=== PATIENT | female | born 1985 | race Caucasian/White ===

== ENCOUNTER 2023-06-14 14:14 | Outpatient (CLI) | payer OTHER, SELFPAY ==
--- NOTE | 2023-07-02 14:42 | WPDSLEEPSTUD ---
Sleep Study Date of Study: 06/14/23 Ordering Provider: Rocco Arcos APRN Interpreting Physician: Bonny Becker MD Sleep Study Type: Split Polysomnogram Height: 1.68 m Weight: 142.882 kg Body Mass Index: 50.8 Neck Circumference (inches): 18 Votaw: 20 Reason for Sleep Study Hypersomnolence * 10/22/2021, home sleep test using Snap diagnostics device showed an apnea-hypopnea index of 59.6, jayesh saturation 79%, 41 minute spent below 88% and a recommended CPAP pressure of 13 cm or auto PAP. BMI at the time was 49.3. Sleep History Summer Sabillon is a 38-year-old woman with excessive daytime sleepiness and constant daytime fatigue. She falls asleep at work. She is a customer service coordinator. She is sleepy while driving. Before having kids she would take naps daily and she snored. There is a family history of sleep issues, her father was recently placed on CPAP. She rarely awakens from sleep short of breath. She frequently wakes at night with heartburn, belching or coughing.??She constantly snores loudly enough that others complain. She occasionally has trouble sleeping when she has a cold. She occasionally wakes up gasping for breath during the night. She occasionally has breathing problems at night. She rarely sweats excessively at night. She rarely notices her heart pounding or beating irregularly during the night. She constantly falls asleep during the day. She occasionally falls asleep involuntarily, and even occasionally falls asleep while driving. She never experiences loss of muscle tone with strong emotion. She constantly feels paralyzed on waking or falling asleep. She frequently experiences vivid dreams upon waking or falling asleep. She never feels afraid of going to sleep. She never has nightmares. She occasionally recalls her dreams. She occasionally has thoughts racing through her mind. She never feels sad or depressed. She frequently feels anxiety. She never notices parts of her body jerk. She never kicks during the night. She never feels crawling or aching feelings in her legs. She rarely feels leg pain at night. She never has morning jaw pain, and occasionally grinds her teeth at night. She frequently feels bothered by pain during the day, is rarely awakened by pain during the night. She occasionally wakes up feeling stiff in the morning, occasionally wakes feeling sore or achy in the morning. She occasionally awakens with pain in her neck, spine, or joints. Normal bedtime is 10:00 p.m., falling asleep within an hour, waking 3 or more times at night to go to the bathroom, have a snack and look at her cell phone. She wakes at 6:00 a.m., reports getting 7-8 hours of sleep per night. On weekends, bedtime is 11:00 p.m. and her wake time is 9:00 a.m. or later. She does not generally take naps in the afternoon or evening. A short nap lasting 10-15 minutes may be refreshing. She is drowsy for 3 hours or longer after waking. She feels better in the evening compared to other times of day. Habits:??Tobacco: Never smoker Caffeine: one 12 oz can of soda per day. Alcohol: None Recreational substances: none PMFSH Past Medical History Medical History Annual physical exam Anxiety Body mass index [BMI] 38.0-38.9, adult (03/17/17) Body mass index [BMI] 40.0-44.9, adult (08/04/16) Chondromalacia patellae, right knee LINO (obstructive sleep apnea) Patellofemoral pain syndrome of right knee PCOS (polycystic ovarian syndrome) Pes anserine bursitis Pre-diabetes Screening for cholesterol level Screening for thyroid disorder Skin neoplasm URI (upper respiratory infection) Vitamin B12 deficiency Vitamin D deficiency Weight loss counseling, encounter for Surgical History Surgical History History of section 03/26/10, 06/28/2014 Family History Family History (Reviewed 07/02/23 @ 14:49 by Bonny Curiel
[2023-07-02 15:09] VITALS: BMI 50.8
== END 2023-06-15 06:53 | disposition home or self-care (01) ==
LOC: ANHCSM 14:14
PROVIDERS: PCP Physician Assistant Medical; Visit Provider Nurse Practitioner Family
DX: G47.33 Obstructive sleep apnea (adult) (pediatric) (principal); F39 Unspecified mood [affective] disorder; Z68.43 Body mass index [BMI] 50.0-59.9, adult
CPT/HCPCS: 95811

== ENCOUNTER 2023-10-25 16:09 | Outpatient (CLI) | payer OTHER, SELFPAY ==
--- NOTE | ~2023-10-25 | CT_ITS ---
EXAMINATION: CT diagnostic chest wo con DATE: 10/25/2023 16:39 INDICATION: Dyspnea. History of pneumonia. TECHNIQUE: Computed tomography (CT) of the chest was performed without intravenous contrast. The dose -length product was 869.41 mGy-cm. Automated exposure control and iterative reconstruction technique were employed. COMPARISON: Chest dated 10/16/2023 FINDINGS: Mild mediastinal lymphadenopathy, likely reactive. Heart size normal. No significant pleura l or pericardial effusion. No endobronchial lesions. There are right upper lobe groundglass and retic ulonodular densities, consistent with pneumonia. No acute osseous abnormality. Mild thoracic spondylo sis. IMPRESSION: 1. Groundglass and reticulonodular densities of the right upper lobe, consistent with pneumonia. 2: Mild mediastinal lymphadenopathy, likely reactive. Reviewed, dictated and finalized at location B. IMPRESSION: 1. Groundglass and reticulonodular densities of the right upper lobe, consisten t with pneumonia. 2: Mild mediastinal lymphadenopathy, likely reactive.
== END 2023-10-25 16:10 | disposition home or self-care (01) ==
LOC: ANHIMG 16:10
PROVIDERS: PCP Physician Assistant Medical; Visit Provider Nurse Practitioner Family
DX: J18.9 Pneumonia, unspecified organism (principal); R93.89 Abnormal findings on diagnostic imaging of other specified body structures; R91.8 Other nonspecific abnormal finding of lung field; R59.0 Localized enlarged lymph nodes
CPT/HCPCS: 71250

== ENCOUNTER 2024-07-23 12:58 | Outpatient (CLI) | payer OTHER, SELFPAY ==
--- OUTSIDE RECORDS SUMMARY | 2024-07-23 14:34 | XMS_ITS | Referral Summary ---
Author Organization [address] Address [address] [place] [address] Care Team Providers Care Meringuer Name Role Phone Carolee Sherwood NP Primary Care Provider Allergies Active Allergy Reactions Criticality Noted Date Comments Penicillanic Sulfone Bl Beta -Lactamase Inhibitors Rash Medium 11/29/2022 Sulfa (Sulfonamide Antibiotics) Rash Medium 11/02 Tramadol Rash Medium 11/29/2022 Medications buPROPion XL (WELLBUTRIN XL) 150 mg 24 hr tablet Take 1 tablet (150 mg total) by mouth daily 09/13/2022 Active PARoxetine (PAXIL) 20 mg tablet Take 1 tablet (20 mg total) by mouth daily 11/14/2022 Active semaglutide (WEGOVY) 0.5 mg/0.5 mL auto-injector Inject 0.5 mL (0.5 mg total) under the skin every 7 days Active meloxicam (MOBIC) 15 mg tabletIndication s:Superior glenoid labrum lesion of shoulder, initial encounter Take 1 tablet (15 mg total) by mouth daily 30 tablet 1 11/29/2022 Active Active Problems Problem Noted Date Diagnosed Date Traumatic incomplete tear of right rotator cuff 01/24/2023 Superior glenoid labrum lesi on of shoulder, initial encounter 01/24/2023 Right shoulder pain 01/24/2023 Social History Tobacco Use Types Packs/Day Years Used Date Smoking Tobacco: Never Tobacco Cessation:Counseling Given: Not Answered Personal Safety Answer Date Recorded Getting School Help Needed Not on file 04/12 Comments Unknown Sex and Gender Information Value Date Recorded Sex Assigned at Not on file Legal Sex Female 5:38 AM CDT Gender Identity Not on file Sexual Orientation Not on file 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
--- OUTSIDE RECORDS SUMMARY | 2024-07-23 14:34 | XMS_ITS | Clinical Summary ---
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 Not on file Not on file Obstetrics History Last Filed Vital Signs Vital Sign Reading Time Taken Comments Blood Pressure - - Pulse - - Temperature - - Respiratory Rate - - Oxygen Saturation - - Inhaled Oxygen Concentration - - Weight 145.2 kg (320 lb) 11/29/2022 12:54 PM CDT Height 167.6 cm (5' 6 ) 11/29/2022 12:54 PM CDT Body Mass Index 51.65 11/29/2022 12:54 PM CDT Plan of Treatment Health Maintenance Due Date Last Done Comments Cervical Cancer Screening 1986 Depression Screening 1986 Hepatitis C Screening 1986 Varicella Vaccines (1 of 2 - 13+ 2-dose series) 1999 Regular Well Visit/Exam 18-64 02/11/2004 Influenza Vaccine (Season Ended) 2024 01/20/2015, 01/20/2015 DTaP/Tdap/Td Vaccine (8 - Td or Tdap) 04/14/2025 04/14/2015, 04/13/2015, 11/06/2002, Additional history exists Hepatitis B Screening Completed 11/01/1996 , 11/01/1996, 06/04/1996, Additional history exists HPV Vaccines Aged Out No longer eligi ble based on patient's age to complete this topic Pneumococcal vaccine <65 Aged Out No longer eligible based on patient's age to complete this topic Insurance CIGNA CIGNA Care Teams Poultry Breeder Relationship Specialty Start Date End Date Carolee Sherwood NP [address] [place] [id number] PCP - General Nurse Practitioner 11/11/22
--- NOTE | 2024-07-23 15:00 | NEURO_ITS ---
Impression: # Complains of numbness of hands. Non-diabetic. ? # Bilateral Carpal Tunnel Syndrome, left more than right. ? # No ulnar neuropathy. ? # Needle/EMG exam mildly abnormal. Nerve Conduction Studies Anti Sensory Summary Table ?Stim Site NR Peak (ms) P-T Amp (?V) Site1 Site2 Delta-P (ms) Dist (cm) Joaquin (m/s) Left Median Anti Sensory (2-3nd Digit) Wrist ? 5.7 16.9 Wrist 2-3nd Digit 5.7 14.0 25 Wrist ? 6.2 12.5 Wrist 2-3nd Digit 5.7 14.0 25 Right Median Anti Sensory (2-3nd Digit) Wrist ? 4.9 28.9 Wrist 2-3nd Digit 4.9 14.0 29 Wrist ? 4.9 25.0 Wrist 2-3nd Digit 4.9 14.0 29 Left Radial Anti Sensory (Base 1st Digit) Wrist ? 1.9 21.7 Wrist Base 1st Digit 1.9 0.0 Right Radial Anti Sensory (Base 1st Digit) Wrist ? 2.0 35.7 Wrist Base 1st Digit 2.0 0.0 Left Ulnar Anti Sensory (5th Digit) Wrist ? 2.5 50.9 Wrist 5th Digit 2.5 14.0 56 Right Ulnar Anti Sensory (5th Digit) Wrist ? 2.4 44.8 Wrist 5th Digit 2.4 14.0 58 Motor Summary Table ?Stim Site NR Onset (ms) O-P Amp (mV) Site1 Site2 Delta-0 (ms) Dist (cm) Joaquin (m/s) Left Median Motor (Abd Poll Brev) Wrist ? 5.9 6.8 Elbow Wrist 4.1 31.0 76 Elbow ? 10.0 8.3 Right Median Motor (Abd Poll Brev) Wrist ? 4.5 4.2 Elbow Wrist 5.1 30.0 59 Elbow ? 9.6 3.6 Left Ulnar Motor (Abd Dig Minimi) Wrist ? 2.6 10.1 A Elbow Wrist 5.4 32.0 59 A Elbow ? 8.0 7.9 B Elbow Wrist 3.9 23.0 59 B Elbow ? 6.5 6.8 Right Ulnar Motor (Abd Dig Minimi) Wrist ? 2.5 7.4 A Elbow Wrist 5.5 33.0 60 A Elbow ? 8.0 5.3 B Elbow Wrist 4.4 26.0 59 B Elbow ? 6.9 3.9 F Wave Studies ?NR F-Lat (ms) L-R F-Lat (ms) Left Median (Mrkrs) (Abd Poll Brev) ? 29.74 0.00 Right Median (Mrkrs) (Abd Poll Brev) ? 29.74 0.00 Left Ulnar (Mrkrs) (Abd Dig Min) ? 27.89 0.01 Right Ulnar (Mrkrs) (Abd Dig Min) ? 27.90 0.01 EMG ?Side Muscle Nerve Root Ins Act Fibs Amp Dur Recrt Comment Right 1stDorInt Ulnar C8-T1 Nml Nml Nml Nml Nml Right Ext Indicis Radial (Post Int) C7-8 Nml Nml Nml Nml Nml Right Ext Digitorum Radial (Post Int) C7-8 Nml Nml Nml Nml Nml Right BrachioRad Radial C5-6 Nml Nml Nml Nml Nml Right PronatorTeres Median C6-7 Nml Nml Nml Nml Nml Right Abd Poll Brev Median C8-T1 Nml Nml Nml >12ms +1 Right ABD Dig Min Ulnar C8-T1 Nml Nml Nml Nml Nml Right FlexPolLong Median (Ant Int) C7-8 Nml Nml Nml Nml Nml Right Abd Poll Long Radial (Post Int) C7-8 Nml Nml Nml Nml Nml Left 1stDorInt Ulnar C8-T1 Nml Nml Nml Nml Nml Left Ext Indicis Radial (Post Int) C7-8 Nml Nml Nml Nml Nml Left Ext Digitorum Radial (Post Int) C7-8 Nml Nml Nml Nml Nml Left BrachioRad Radial C5-6 Nml Nml Nml Nml Nml Left PronatorTeres Median C6-7 Nml Nml Nml Nml Nml Left Abd Poll Brev Median C8-T1 Nml Nml Nml >12ms +1 Left ABD Dig Min Ulnar C8-T1 Nml Nml Nml Nml Nml Left FlexPolLong Median (Ant Int) C7-8 Nml Nml Nml Nml Nml Left Abd Poll Long Radial (Post Int) C7-8 Nml Nml Nml Nml Nml MTDD
== END 2024-07-23 12:59 | disposition home or self-care (01) ==
PROVIDERS: PCP Physician Assistant Medical; Visit Provider Nurse Practitioner Family
DX: G56.03 Carpal tunnel syndrome, bilateral upper limbs (principal)
CPT/HCPCS: 95886; 95911

== ENCOUNTER 2024-09-01 08:13 | Emergency (ER) | payer OTHER, SELFPAY ==
--- NOTE | 2024-09-01 08:14 | ED.URI ---
HPI - URI/Sore Throat General Chief Complaint: Upper Respiratory Infection Stated Complaint: sore throat patient presents to Express Care with complaints nasal congestion, nasal drainage, cough sore throat about 3 days ago. Patient reports having night sweats and chills last night and yesterday daughter Tested positive for strep throat. Patient has been taking antihistamines [id number] without relief of symptoms. Denies known fever, shortness of breath, difficulty swallowing, sinus pain, dizziness, nausea, vomiting, diarrhea. Related Data Home Medications ?Medication ?Instructions ?Recorded ?Confirmed ?Last Taken ?Type alprazolam 0.25 mg tablet (Xanax) 0.25 mg PO BID 12/03/21 04/22/24 Unknown History Blood Builder BYMOUTH 1XD 01/18/24 04/22/24 Unknown History cyanocobalamin (vitamin B-12) 2,000 mcg sublingual DAILY 01/18/24 04/22/24 Unknown History 1,000 mcg sublingual tablet Allergies Allergy/AdvReac Type Severity Reaction Status Date / Time ceftriaxone (From Rocephin) AdvReac Severe Anaphylactic Verified 09/01/24 08:15 Shock Sulfa (Sulfonamide AdvReac Severe Rash Verified 09/01/24 08:15 Antibiotics) amoxicillin (From Augmentin) AdvReac Intermediate Rash Verified 09/01/24 08:15 cephalexin (From Keflex) AdvReac Intermediate Rash Verified 09/01/24 08:15 clavulanic acid (From AdvReac Intermediate Rash Verified 09/01/24 08:15 Augmentin) prednisone AdvReac Intermediate Nausea and Verified 09/01/24 08:15 Vomiting tramadol AdvReac Intermediate Rash Verified 09/01/24 08:15 famotidine (From Pepcid) AdvReac Diarrhea Verified 09/01/24 08:15 vilazodone (From Viibryd) AdvReac Nausea, Verified 09/01/24 08:15 insomnia pristiq AdvReac Severe Anxiety Uncoded 09/01/24 08:15 septra AdvReac Intermediate Rash Uncoded 09/01/24 08:15 Review of Systems Constitutional: Constitutional: Reports as per HPI, Reports chills, Reports fatigue, Denies fever(s) and Denies weakness Eyes: Eyes: Reports no additional eye complaints ENT: Reports as per HPI, Reports nasal congestion and Reports sore throat Cardiovascular: Cardiovascular: Reports no additional cardiovascular complaints Respiratory: Respiratory: Reports as per HPI, Denies chest congestion, Reports cough, Denies dyspnea and Denies wheezing Gastrointestinal: Gastrointestinal: Reports no additional gastrointestinal complaints Genitourinary: Genitourinary: Reports no additional female genitourinary complaints Musculoskeletal: Musculoskeletal: Reports no additional musculoskeletal complaints Integumentary/Breasts: Skin/Breast: Reports system reviewed and no additional complaints, except as docu Neurologic: Reports as per HPI and Reports headache(s) Psychiatric: Psychiatric: Reports no additional psychiatric complaints Endocrine: Endocrine: Reports no additional endocrine complaints Hematologic/Lymphatic: Hematologic/Lymphatic: Reports no additional hematologic/lymphatic complaints Allergic/Immunologic: Allergic/Immunologic: Reports as per HPI ( Seasonal allergies) [facility] Past Medical History Medical History Anxiety PCOS (polycystic ovarian syndrome) Vitamin B12 deficiency Vitamin D deficiency Pre-diabetes Skin neoplasm Pes anserine bursitis Patellofemoral pain syndrome of right knee Chondromalacia patellae, right knee LINO (obstructive sleep apnea) Surgical History Surgical History History of section 03/26/10, 06/28/2014 Family History Family History Other Family history of cardiovascular disease Family history of malignant neoplasm Social History Social History Smoking status: Never smoker Second hand tobacco smoke exposure: No Alcohol intake: current Substance use: never Substance use type: does not use Lack of Transportation: No Lack of Food: Never True Current Housing: I Have Housing Concerned About Future Housing: No Difficulty Paying Gas/Electric Bills: No Difficulty Paying for Meds: No Currently Unemployed: No Education: Don't Know Difficulty w/ Childcare or Family Care: No Living arrangements: with family Occupation/Education: occupation Gender identity (if verbalized by the patient): Female Exam Const: General: healthy appearing and no acute distress; No diaphoretic or ill appearing Nutritional Appearance: well nourished Orientation/consciousness: patient oriented x3 HENMT: Head: normal to inspection Ears: external ears normal and TM's normal bilaterally Face/Nose/Sinus: Normal external nose present, Normal nares present and no nasal discharge noted Face and sinus: normal facial exam and sinuses nontender Mouth: Yes Normal oral and palatal mucosa present, Yes lip normal and Yes moist mucous membranes Throat: posterior oropharynx abnormal ( moderate and erythema noted no exudate) Neck: Neck: lymphadenopathy (bilateral anterior cervical ) Resp: Effort & Inspection: normal respiratory effort Cardio: Rate: regular rate Rhythm: regular rhythm Heart sounds: no murmurs Skin: General skin exam: normal color Rashes: no rashes Wounds: no wounds Neuro: General: patient oriented x3 Speech: normal speech Gait exam (Neuro): Normal gait present Psych: Mental Status: mental status grossly normal Affect: normal affect Attitude: cooperative Course Course Level of Care: Express Care Visit MDM - URI/Sore Throat MDM Narrative Medical decision making narrative: Strep in clinic negative today. Daughter. Positive yesterday for strep. Discharge instructions reviewed with patient, as well as provided in writing per nursing staff. The instructions also include specific and strict return/GO TO THE ER as well as f/u information. All questions have been answered, and the patient deny any further questions with discharge and discharge plan. Differential Diagnosis Differential diagnosis: Likely upper respiratory infection, otitis media, sinusitis, bronchitis, influenza, pharyngitis and other (strep) Medical Records Attestation: I reviewed the patient's medical records. Lab Data Attestation: I reviewed the patient's lab results. Discharge Plan Discharge Clinical Impression: Acute bacterial tonsillitis Patient Disposition: Home Condition: Stable Instructions: Antibiotic Form, Pharyngitis (ED), Strep Throat (ED) Additional Instructions: After 24 hours on antibiotics throw tooth brush away and start using a new one. Do not share drinks. Take Motrin alternating with Tylenol for pain and fever alternating every 4 hours. Increase fluids, avoid caffeine. Follow up with Primary provider if not getting better this week Patient Language: Stateless Prescriptions: New azithromycin 250 mg tablet See Rx Instructions PO .COMPLEX Qty: 6 0RF Rx Instructions: For 250 mg dose pack: take 500 mg today (day 1), then 250 mg for 4 days (days 2-5) No Action albuterol sulfate 90 mcg/actuation HFA aerosol inhaler 2 inh inhalation Q4H PRN (Reason: shortness of breath or wheezing) Qty: 8.5 0RF alprazolam [Xanax] 0.25 mg tablet 0.25 mg PO BID cholecalciferol (vitamin D3) 125 mcg (5,000 unit) capsule 125 mcg PO DAILY Qty: 30 0RF Rx Instructions: OTC ergocalciferol (vitamin D2) [Vitamin D2] 1,250 mcg (50,000 unit) capsule 1,250 mcg PO WEEKLY Qty: 12 0RF cyanocobalamin (vitamin B-12) 1,000 mcg tablet, sublingual 2,000 mcg sublingual DAILY Blood Builder BYMOUTH 1XD bupropion HCl 150 mg tablet extended release 24 hr 150 mg PO DAILY Qty: 90 0RF paroxetine HCl 20 mg tablet 20 mg PO DAILY Qty: 90 0RF Follow-up/Referrals: Paige Doe PA-C [Primary Care Provider] - Time of Disposition: 08:34
--- OUTSIDE RECORDS SUMMARY | 2024-09-01 08:14 | XMS_ITS | Clinical Summary ---
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
--- OUTSIDE RECORDS SUMMARY | 2024-09-01 08:14 | XMS_ITS | Referral Summary ---
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
[2024-09-01 08:22] VITALS: BP 138/69; PULSE 89; RESP 18; TEMP 36.7; O2SAT 98
[2024-09-01 08:30] LABS: EDSTREPNEGPOS1 Negative (Negative)
== END 2024-09-01 08:35 | disposition home or self-care (01) ==
PROVIDERS: Emergency Provider Nurse Practitioner Family; PCP Physician Assistant Medical
DX: J03.90 Acute tonsillitis, unspecified (principal); E28.2 Polycystic ovarian syndrome; R73.03 Prediabetes; F41.9 Anxiety disorder, unspecified; E53.8 Deficiency of other specified B group vitamins; E55.9 Vitamin D deficiency, unspecified
CPT/HCPCS: 87880; 99213; G0463

== ENCOUNTER 2025-01-22 | Day surgery (SDC) | payer OTHER, SELFPAY ==
--- NOTE | 2025-01-10 15:56 | SUR.PREOP ---
[facility] has started construction of its new state of the art ER which will open Spring 2026. With this, we anticipate parking may be a challenge for some our surgical patients and families. Parking spaces are limited but are available for all Surgical, obstetrics, and ER patients sharing this lot. If you arrive and find you are having a hard time finding a parking space, please note that we understand the challenges, please drive around the hospital and park near Hospital Entrance 1. When you enter this entrance, you can ask a volunteer to direct or take you back to the surgical waiting area to check in. We appreciate everyone?s understanding of these expected challenges while we build for your future. Report to the Outpatient Waiting Room, entrance under the green pavilion located off [address], at time __745am on date _01/22/25 . Planned Procedure Time: __945am, .? Time changes happen often and if your time is changed the preop area will call you the afternoon before. - You and your visitor will be asked to self-screen and do not enter if you have any COVID symptoms. Please call surgeon if you need to reschedule. - A mask is optional within the hospital at this time. - No food from midnight until time of surgery and no smoking, or chewing tobacco (or any form of nicotine). No chewing gum, candy or mints. Take only the following medications with a SIP of water on the morning of surgery: _alprazolam,bupropion,paroxetine DO NOT STOP ANY OF YOUR OTHER PRESCRIPTION MEDICATIONS PRIOR TO SURGERY EXCEPT THE FOLLOWING Hold all vitamins and supplements for 3 days per anesthesiologist. Medications to discontinue per physician ___None Date to take last dose___01/18/25____ Please no make-up, nail maldivian, hairspray, perfume, deodorant, or body powder the day of surgery.? No jewelry (including any body piercings) or valuables the day of surgery, leave them at home.? Please take a shower or bath the night before, or the morning of, surgery with an antibacterial soap.? Wear comfortable, loose fitting clothing.? - Jewelry must be removed prior to entering the operating room.? Rings and piercings that are not removed may be cut off. - The hospital will not accept responsibility for valuables.? - Please leave all valuables, including medications, at home the day of surgery. If you are going home after surgery, a licensed driver license reviewing officer must drive you home.? - NO public transportation without another adult if you receive anesthesia. - We recommend that an adult stay with you for 24 hours following discharge. - We also recommend that you do not drive, make important decision, drink alcoholic beverages, or take any drugs that were not prescribed by your health care provider for at least 24 hours after your discharge time. Follow any additional instructions given to you from your surgeon. Telephone instructions given to and asked if any additional questions and then verbalized understanding. Patient advised to call surgeon office or pre surgery nurse liaison [phone] if any additional questions.
[2025-01-10 16:11] VITALS: BMI 51.7
--- OUTSIDE RECORDS SUMMARY | 2025-01-22 00:07 | XMS_ITS | Clinical Summary ---
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 Not on file [...] series) 1999 Regular Well Visit/Exam 18-64 02/11/2004 HPV Vaccines (1 - 3-dose SCDM series) 2013 Influenza Vaccine (#1) 2024 01/20/2015, 2014 DTaP/Tdap/Td Vaccine (8 - Td or Tdap) 04/14/2025 04/14/2015, 04/13/2015, 11/06/2002, Additional history exists Hepatitis B Screening Completed 11/01/1996 , 11/01/1996, 06/04/1996, Additional history exists Pneumococcal vaccine <65 Aged Out No longer eligible based on patient's age to complete this topic [facility] Care Teams Bolt Threader Relationship Specialty Start Date End Date Carolee Sherwood NP [address] [place] [id number] PCP - General Nurse Practitioner 11/11/22
--- OUTSIDE RECORDS SUMMARY | 2025-01-22 00:07 | XMS_ITS | Data Portability ---
Author Organization [facility], [id number] Address [address] [place] [address] Assessment No assessment recorded. Plan of Treatment Reminders Order Date Submit Date Provider Last Modified By Organization Details Last Modified Time Details Appointments ANNUAL- EST 15 2025 12:00P M YUN MALLORY WHNP Not available Not available Not available Lab HPV DNA, high-risk - Reflex to genotypin g if HPV Detected 2024 025 [facility] ([facility]), [facility] [address], [place], [address], 10/16/2024 17:46:42 pap, LB 2024 025 [facility] ([facility]), [address] [place] [address] [address], [place], [address], 10/16/2024 17:46:42 Referral None recorded. Procedures None recorded. Surgeries None recorded. Imaging None recorded. Medication Orders None recorded. Patient TargetsNo targets recorded. Patient Instructions Encounter Date Encounter Id Patient Instructions Last Modified By Organization Details Last Modified Time 10/14/2024 [id number] - Await Pap smea r and HPV screening results via the patient portal. - Consider scheduling IUD replacement in April or May to avoid scheduling conflicts. [id number] Not available 10/14/2024 12:10:32 During the visit , we discussed the patient's annual wellness examination, including cervical cancer and HPV screening. We also addressed her concerns about potential menopausal symptoms, noting that her age makes menopause unlikely. We considered the option of removing the IUD to conduct hormone testing, but no immediate action was taken. The patient was informed that Pap smear results would be communicated through the patient portal. The patient should follow up for IUD replacement in April or May to avoid scheduling conflicts. Additionally, she should monitor for Pap smear results via the patient portal and consult her primary care provider if menopausal symptoms persist or worsen. [email or web address] Not available 10/14/2024 12:10:32 Reason for Referral None Reported. Results Created Date Observation Date Name Description Value Unit Range Abnormal Flag Note LastModifiedBy Organization Detail LastModifiedTime 10/15/1910/16/2024 PAP TEST THIN PREP Pap test thin prep Negati ve for Intrae pithel ial Lesion or Malign liam normal ACCES SALVADOR #: [id number] Sourc e: Cervi roro/E ndoce rvica l LMP: unk Date Taken : 10/14 Speci men Type: ThinP rep Vial Date Repor nadia: 2024 Clini roro Data: IUD Last Pap: WNL (09/23) Cytot ech: Talia Laurent , CT( CP) Date Repor nadia: 2024 Speci men Adequ acy: Satis facto ry for evalu ation No endoc ervic al/tr ansfo rmati on zone compo nent prese nt Gener al Categ oriza tion: NEGAT NEDA FOR INTRA EPITH ELIAL LESIO N OR MALIG SALVADOR This speci men has been pascual zed by the ThinP rep Imagi ng Syste m, an inter activ e compu ter syste m which beth ts the lab in the scree calvin of ThinP rep Pap Test slide s. Follo wing imagi ng, the slide was revie wed by a Cytot echno logis t and/o r Patho logis t. Cervi roro cytol ogy is a scree calvin test prima rily for squam ous cance rs and precu rsors and has assoc iated false -nega tive and false -posi tive resul ts. New techn ologi es such as liqui d-bas ed prepa ratio ns may decre ase but will not elimi chad all false -nega tive resul ts. Regul ar sampl ing and follo w-up of unexp shari d clini roro signs and sympt oms are recom britta d to minim ize false negat neda resul ts. D N A A S S A Y S R E P O R T TEST NAME RESUL TS ----- ---- ----- -- HPV High Risk Scredomi n (TMA) ThinP rep Vial The human papil lomav irus (HPV) High Risk Scree n is an FDA-a pprov ed in-vi tro ampli fied nucle ic acid test for the quali tativ e detec tion of E6/E7 viral mRNA. Resul ts shoul d be corre lated with patie nt prese ntati on, histo ry, cervi roro cytol ogy and other clini roro and labor atory findi ngs. See https ://[employer]/s ites/ defau lt/fi les/2 018-0 3/AW- 91296 _002_ 01.pd f for chaim fisherr nicki harry. Test perfo rmed by [facility], [facility] d/b/a Jose sorensen, [address], [place] [address] , Kayla Ramos ra, DO, Labor atory [facility], [facility]# [id number] HPV High Risk *HPV NOT DETEC NADIA (TYPE S 16, 18, 31, 33, 35, 39, 45, 51, 52, 56, 58, 59, 66, 68) *HPV: The human papil lomav irus (HPV) High Risk Scree n is an FDA-a pprov ed in-vi tro ampli fied nucle ic acid test for the quali tativ e detec tion of E6/E7 viral mRNA. Resul ts shoul d be corre lated with patie nt prese ntati on, histo ry, cervi roro cytol ogy and other clini roro and labor atory findi ngs. See https ://[employer]/s ites/ defau lt/fi les/2 018-0 3/AW- 29164 _002_ 01.pd f for chaim er infor nicki n. Test [facility]fo [facility]med by [facility] [employer] d/b/a [facility], [address], [place] [address] , Kayla Ramos ra, DO, [facility], CLIA# [id number] End of Repor t Techn ical servi lynette provi ded by [facility] [employer] [facility] [employer], d/b/a [facility], [address] [place] [address] Lanny hsu MD, [facility]. Case revie wed and diagn osis rende red at [facility] [employer], d/b/a [facility], [address] [place] [address] Lanny hsu MD, [facility]. CONFI DENTI AL Not Available [facility] ([facility]) [address] [place] [address], [place], [address], 10/16/2024 17:46:41 10/15/19 25 10/15/2024 HPV HIGH RISK SCREE N (TMA) HPV high risk NOT DETECT ED normal Not Available [facility] ([facility]) [address] [place] [address], [place], [address], 10/16/2024 17:46:42 Result Notes None recorded. Problems Name Problem SNOMED Code Status Onset Date Resolution Date Notes Provider Name and Address Organization Details Recorded Time Gastroes ophageal reflux disease 324400635 Active Acid Reflux/G ERD, Problem Code: 530.81; Problem Code Type: ICD-9; Not Available [facility] 12:18:27 Polycyst ic ovaries Active PCOS, Problem Code: 256.4; Problem Code Type: ICD-9; Not Available [facility] 12:18:27 Morbid obesity 957883498 Active 2016 Morbid obesity with BMI of 45.0-49. 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 07:58:15 History of pneumoni a 238158721 Active 2024 Adriana peacock [facility] 11:31:16 Problem Notes None recorded. Procedures Surgical History Date Name Laterality Status Provider Name and Address Organization Details Recorded Time 10/15/19 25 Date of Last Pap Smear completed Lucy Carroll [facility] 10/21/2024 13:19:42 09/18/19 24 Date of Last Mammogram completed Adriana Wren [facility] 10/14/2024 07:58:52 06/09/19 18 introduction of Mirena coil completed Not Available [facility] 08/01/2024 12:07:21 section completed Not Available [facility] 08/01/2024 12:07:20 Imaging Results None recorded. Procedure Notes None recorded. Medical Equipment None Reported. Allergies Allergen ID Allergen Name Allergen Category Reaction Reaction Severity Criticality Documentation Date Start Date Code Code System Note Provider Name and Address Organization Details Recorded Time 819000 sulfur medicatio n Not available Not available Not available 08/01/2024 61104 RxNorm Not Available [facility] 12:12:44 065708 Product containin g penicilli n (product) medicatio n rash Not available Not available 08/01/2024 00864 8001 SNOMED Aller gyCod e: '476' ; Aller gyNam e: 'PENI CILLI NS'; Aller gyCon ceptT ype: 'FDBA LLERG P'; Not Available [facility] 12:12:44 677005 Substance with sulfonami de structure and antibacte rial mechanism of action (substanc e) medicatio n rash Not available Not available 08/01/2024 87255 8003 SNOMED Aller gyCod e: '491' ; Aller gyNam e: 'SULF A (SULF ONAMI DE ANTIB IOTIC S)'; Aller gyCon ceptT ype: 'FDBA LLERG P'; Not Available [facility] 12:12:45 Medications Name Sig Start Date Stop Date Status Note LastModified by Organization Details LastModified Time Mirena 21 mcg/24 hr (up to 8 years) 52 mg intrauterin e device Take by intrauter ine route. 2017 active Not Available Not Available Not Avai lable azithromyci n 250 mg tablet TK 2 TS PO ON DAY 1, THEN TK 1 T PO D FOR 4 DAYS 10/14 completed Not Available Not Available Not Available fluconazole 150 mg tablet TAKE 1 TABLET BY MOUTH 1 TIME. REPEAT IN 3 DAYS 10/14 completed Not Available Not Available Not Available ciprofloxac in 500 mg tablet TAKE 1 TABLET BY MOUTH EVERY 12 HOURS 10/14 completed Not Available Not Available Not Available clindamycin 1 % topical gel APPLY A THIN LAYER TO FRESHLY WASHED AND DRIED FACE UP TO TWICE DAILY NEEDED active Not Available Not Available No t Available paroxetine 20 mg tablet TAKE 1 TABLET BY MOUTH DAILY active Not Available Not Available No t Available ergocalcife rol (vitamin D2) 1,250 mcg (50,000 unit) capsule TAKE 1 CAPSULE BY MOUTH WEEKLY 10/14 completed Not Available Not Available Not Available methylpredn isolone 4 mg tablets in a dose pack FOLLOW PACKAGE DIRECTION S 10/14 completed Not Available Not Available Not Available albuterol sulfate HFA 90 mcg/actuati on aerosol inhaler INHALE 2 PUFFS BY MOUTH EVERY 4 TO 6 HOURS NEEDED active Not Available Not Available No t Available doxycycline hyclate 100 mg tablet TAKE 1 TABLET BY MOUTH TWICE DAILY 10/14 completed Not Available Not Available Not Available bupropion HCl XL 150 mg 24 hr tablet, extended release TAKE 1 TABLET BY MOUTH DAILY active Not Available Not Available No t Available Vitals Date Recorded Body height Body mass index (BMI) Body weight Systolic And Diastolic Provider Name and Address Organization Details Last Updated DateTime 10/14/2024 167.64 cm 52.9 kg/m2 882233.58 g 118/68 mm[Hg] Adriana Wren [facility] 10/14/2024 11:29:29 Social History Question Answer Notes LastModified by [employer] Details LastModified Time Tobacco Smoking Status Never Smoker Note: Not Available [employer] 08/01/2024 13:48:50 Do You Have An Advance Directive? No Information not available 10/14/2024 If You Are , What Was Your Level Of Alcohol Consumption Prior To ? None Information not available 10/14/2024 What Is Your Level Of Caffeine Consumption? Moderate Information not available 10/14/2024 What Type Of Diet Are You Following? REGULAR Information not available 10/14/2024 What Is Your Relationship Status? Information not available 10/14/2024 Sex: Female Functional Status Question Answer Note LastModified by [employer] Details LastModified Time Do you use any illicit or recreational drugs? No Information not available 08/01/2024 What is your level of alcohol consumption? Occasional Qty: 0-2 per day; Note: Use status used: Current some day Amount used: occas Information not available 08/01/2024 Are you currently employed? 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 Family History Relationship Description Onset Age of this Age Resolved Age Notes LastModified by Organization Details LastModified Time Maternal Grandfather Malignant neoplasm of lung bvoellinger Not available 10/01 11:32:26 Paternal Grandmother Malignant neoplasm of lung bvoellinger Not available 10/01 11:32:26 Medical History Condition Response GI- Reflux/Ulcers Y Cancer- Genetic screening Dermatology-Other Y ID-Other Y Weight Management/Obesity Y Gynecological History Statement/Question Response Date of Last Mammogram 09/18/2023 Flow Moderate History of Fibroids N Date of LMP Current Control Method: IUD History of Recurrent Ovarian Cysts Y Age at first intercourse 19 Date of Last HPV Test 10/14/2024 Date of Last Cholesterol Screening 04/03 History of PCOS Y History of Infertility N History of Cervical Dysplasia N History of Vulvar Dysplasia N Duration of Flow (days) 0 Current Control Method Age at Menarche 14 History of Endometriosis N Frequency of Cycle (Q days) 0 Sexually Active? Y History of Dysmenorrhea N Menses Monthly N Date of Last Pap Smear 10/14/2024 Sexual Problems? Y History of Sexually Transmitted Infectio n N Obstetrics History GPAL:G 2 P 2 0 0 2 Type Value Multiple Births 0 Full Term 2 Induced 0 Spontaneous 0 Premature 0 Living 2 Ectopics 0 Total 2 Immunizations Vaccine Type Date Status Note Provider Nam e and Address Organization Details Recorded Time Novel [id number] 0 completed Not Available [facility] 08/01/2024 11:58:05 MMR 2 completed Adriana Voellinger null, [place] [facility] 10/14/2024 07:57:31 MMR 8 completed Adriana [place], [place] [facility] 10/14/2024 07:57:31 Tdap 6 completed Adriana [place] [facility] 10/14/2024 07:57:31 DTP 7 completed Adriana [place] [facility] 10/14/2024 07:57:31 DTP 0 completed Adriana [place] [facility] 10/14/2024 07:57:31 DTP 7 completed Adriana [place] [facility] 10/14/2024 07:57:31 DTP 2 completed Adriana [place] [facility] 10/14/2024 07:57:31 DTP 7 completed Adriana Vodipikaer [place] [facility] 10/14/2024 07:57:31 OPV, trivalent 7 completed Adriana [place] [facility] 10/14/2024 07:57:31 OPV, trivalent 0 completed Adriana [place] [facility] 10/14/2024 07:57:31 OPV, trivalent 7 completed Adriana [place] [facility] 10/14/2024 07:57:31 OPV, trivalent 2 completed Adri[place] [facility] 10/14/2024 07:57:31 OPV, trivalent 7 completed Adri[place] [facility] 10/14/2024 07:57:31 Influenza, split virus, trivalent, preservative 5 completed Adri[place] [facility] 10/14/2024 07:57:31 Td (adult), 2 Lf tetanus toxoid, preservative free, adsorbed 3 completed Adri[place] [facility] 10/14/2024 07:57:31 Hep B, adolescent or pediatric 7 completed Adri[place] [facility] 10/14/2024 07:57:31 Hep B, adolescent or pediatric 7 completed Adri[place] [facility] 10/14/2024 07:57:31 Hep B, adolescent or pediatric 7 completed Adri[place] [facility] 10/14/2024 07:57:31 DTaP 6 completed Adri[place] [facility] 10/14/2024 07:57:31 Past Encounters Encounter ID Performer Location Encounter Start Date Encounter Closed Date Diagnosis/Indication Diagnosis SNOMED-CT Code Diagnosis ICD10 Code Diagnosis IMO Codes Diagnosis Note [id number] JANNIE KELLEY MD [id number] [facility] [address] [place] [address] 10/14/2024 11:02:17 10/14/2024 11:51:20 Screening for malignant neoplasm of cervix 842787235 Z12.4 The patient underwent a Pap smear as part of her cervical cancer screening during the annual wellness visit. Results will be communicat ed through the patient portal once available. Human joon lloma virus screening 020311946 Z11.51 HPV screening was conducted alongside the Pap smear to ensure comprehens neda cervical health assessment . Female gen sabiha finding 734385607 Z01.419 76712 Health Concerns Section Related Observation LastModified by Organization Detai ls LastModified Time None Recorded Concern Status LastModified by Organization Details LastModified Time None Recorded Advance Directives Directive N: Payers Insurance Date Sequence Insurance Name Policy Number Policy James Covered Member ID James Member ID Guarantor Name 09/18/2024 1 [facility] [employer] [facility] [id number] Ricardo Sabillon [id number] 2 Summer Sabillon Notes Date Note Type Note Provider Name and Address Organization Details Recorded Time 10/14/2024 text/html ROS as noted in the HPI The patient is a 39-year-old female presenting with an annual wellness examination, including cervical cancer and HPV screening. The patient currently has an intrauterine device (IUD) and reports no significant menstrual bleeding, only occasional spotting. The IUD is due for replacement in June of the following year, and the patient is considering scheduling the replacement earlier to avoid any scheduling conflicts. The patient expresses concern about potential menopausal symptoms, including hot flashes and night sweats, although she acknowledges that these symptoms are not consistent or severe. She has no family history of early menopause, and her thyroid function is regularly monitored by her primary care provider. YUN MALLORY [facility] [address], [place], [address], [facility] 10/14/2024 14:00:34 OBGyn Episode Ob Episode Information Episode Created Date Number of Fetuses Patient Bloodtype Patient rh Status Prepregnancy Weight lbs Domestic Partner Domestic Partner Phone Father Name [employer]orator [employer] Fixtures Status 08/16/19 25 1 CLOSED Fetus Data First Name Last Name Admitted to NICU Weight (g) Sex Living Outcome Pediatric Complications Fetus ID Race Codes Race Delivery Type M [id number] z_Cesarea n Section Bakari Calculation Initial Bakari Date Initial Exam Date Initial Exam Provider Initial Ultrasound Date Last Menstrual Period Date Ultra Sound Weeks Gestation 0 Eighteen To Twenty Week Bakari Update Ultra Sound Date Fundal Height At Umbil Quickening Date Ultra Sound Latest Weeks Gestation Final Bakari Confirmed By Final Bakari Confirmed Date Final Bakari Date Ultra Sound Latest Days Gestation 0 0 Menstrual History Last Menstrual Date Menses Monthly On Bcp Conception Prior Menses Frequency Hcg Plus Date Menarche Onset Age Delivery Information Delivery Date Delivery Type Labor Anesthesia Weeks Gestation Incision Type Labor Labor Length Hrs Delivered By Post Complications Tubal Sterilization Discharge Date Comments 6 Regional-Ep idural 39 CHD, [place] fetus_1_w eight_lbs : '11-07'; Discharge Information Feeding Method Contraceptive Method Maternal HG B and HCT Levels Ob Episode Information Episode Created Date Number of Fetuses Patient Bloodtype Patient rh Status Prepregnancy Weight lbs Domestic Partner Domestic Partner Phone Father Name Decorator Lighting Fixtures Status 08/16/19 25 1 CLOSED Fetus Data First Name Last Name Admitted to NICU Weight (g) Sex Living Outcome Pediatric Complications Fetus ID Race Codes Race Delivery Type F [id number] z_Cesarea n Section Bakari Calculation Initial Bakari Date Initial Exam Date Initial Exam Provider Initial Ultrasound Date Last Menstrual Period Date Ultra Sound Weeks Gestation 0 Eighteen To Twenty Week Bakari Update Ultra Sound Date Fundal Height At Umbil Quickening Date Ultra Sound Latest Weeks Gestation Final Bakari Confirmed By Final Bakari Confirmed Date Final Bakari Date Ultra Sound Latest Days Gestation 0 0 Menstrual History Last Menstrual Date Menses Monthly On Bcp Conception Prior Menses Frequency Hcg Plus Date Menarche Onset Age Delivery Information Delivery Date Delivery Type Labor Anesthesia Weeks Gestation Incision Type Labor Labor Length Hrs Delivered By Post Complications Tubal Sterilization Discharge Date Comments 0 Regional-Ep idural 40 false 31 ADP, Maxine, OP/arrest of dilation/ descent fetus_1_w eight_lbs : '10-07'; Discharge Information Feeding Method Contraceptive Method Maternal HG B and HCT Levels
[2025-01-22 06:37] VITALS: BP 140/83; PULSE 84; RESP 16; TEMP 36.5; O2SAT 98
--- NOTE | 2025-01-22 06:48 | PM.HPGS ---
History of Present Illness History of Present Illness Chief complaint: left carpal tunnel syndrome Narrative: Patient seen and examined in pre-operative holding area. No interval change in medical history or symptoms. Patient recalls previous discussion of benefits and alternatives to procedure. Continues to desire to proceed with left endoscopic possible open carpal tunnel release . Reviewed procedure, post-op expectations and risks including but not limited to bleeding, infection, injury to tendon/nerve/vessel, decreased hand function, stiffness, RSD, no change or worsening of symptoms. I discussed the possible use of assistants and their participation in the case. Patient stated understanding and signed the consent form wishing to proceed. Review of Systems Review of Systems: All systems reviewed & are unremarkable except as noted in HPI and below PMFSH Past Medical History Medical History Anxiety PCOS (polycystic ovarian syndrome) Vitamin B12 deficiency Vitamin D deficiency Pre-diabetes Skin neoplasm Pes anserine bursitis Patellofemoral pain syndrome of right knee Chondromalacia patellae, right knee LINO (obstructive sleep apnea) Surgical History Surgical History History of section 03/26/10, 06/28/2014 Family History Family History Other Family history of cardiovascular disease Family history of malignant neoplasm Social History Social History Social History: 10/30/24 Not confident with medical forms Smoking status: Never smoker Second hand tobacco smoke exposure: No Alcohol intake: current Substance use: never Substance use type: does not use Do You Feel Safe in your Home?: Yes Lack of Transportation: No Lack of Food: Never True Current Housing: I Have Housing Concerned About Future Housing: No Difficulty Paying Gas/Electric Bills: No Difficulty Paying for Meds: Decline to Answer Currently Unemployed: No Education: High School Diploma/GED Difficulty w/ Childcare or Family Care: No Living arrangements: with family Occupation/Education: occupation Gender identity (if verbalized by the patient): Female Meds Home Medications and Allergies Home Medications ?Medication ?Instructions ?Recorded ?Confirmed ?Type Blood Builder by [employer] (iron 2 cap JUVENCIOUTH .QD #60 caps 10/31/24 01/22/25 Rx bisglycinate 26 mg), B12 (30 mcg), folate 408 mcg) vitamin-C (15 mg) alprazolam 0.25 mg tablet (Xanax) 0.25 mg PO BID #20 tabs 10/31/24 01/22/25 Rx bupropion HCl 150 mg 24 hr tablet, 150 mg PO DAILY #90 tabs 10/31/24 01/22/25 Rx extended release paroxetine HCl 20 mg tablet 20 mg PO DAILY #90 tabs 10/31/24 01/22/25 Rx Zepbound 2.5 mg/0.5 mL 2.5 mg (0.5 mL) subcut WEEKLY #2 mL 01/02/25 01/10/25 Rx subcutaneous pen injector (tirzepatide (weight loss)) hydrocodone 5 mg-acetaminophen 325 1 tablet PO Q6H PRN pain #8 tabs 01/22/25 Rx mg tablet Allergies Allergy/AdvReac Type Severity Reaction Status Date / Time ceftriaxone (From Rocephin) Allergy Severe Anaphylactic Verified 01/22/25 07:18 Shock Sulfa (Sulfonamide Allergy Severe Rash Verified 01/22/25 07:18 Antibiotics) amoxicillin (From Augmentin) Allergy Intermediate Rash Verified 01/22/25 07:18 cephalexin (From Keflex) Allergy Intermediate Rash Verified 01/22/25 07:18 clavulanic acid (From Allergy Intermediate Rash Verified 01/22/25 07:18 Augmentin) sulfamethoxazole (From Allergy Intermediate Rash Verified 01/22/25 07:18 Septra) tramadol Allergy Intermediate Rash Verified 01/22/25 07:18 trimethoprim (From Septra) Allergy Intermediate Rash Verified 01/22/25 07:18 desvenlafaxine (From Pristiq) AdvReac Severe Anxiety Verified 01/22/25 07:18 prednisone AdvReac Intermediate Nausea and Verified 01/22/25 07:18 Vomiting famotidine (From Pepcid) AdvReac Diarrhea Verified 01/22/25 07:18 vilazodone (From Viibryd) AdvReac Nausea, Verified 01/22/25 07:18 insomnia Exam Narrative: unchanged Assessment and Plan Assessment and plan (1) Carpal tunnel syndrome: Qualifiers: Laterality: left Qualified Code(s): G56.02 - Carpal tunnel syndrome, left upper limb Code(s): G56.00 - Carpal tunnel syndrome, unspecified upper limb Status: Acute Assessment and Plan: cont as above
--- NOTE | 2025-01-22 06:48 | W.PM.PROC2 ---
Procedure Note - Detailed Date of Procedure 01/22/25 Pre-op Diagnosis left carpal tunnel syndrome Post-op Diagnosis Same Procedure Performed left ectr Surgeon Ronny Amezcua MD Hand Hide Stretcher zeke glass pa-c Anesthesia MAC Description of Procedure INFORMED CONSENT: The patient was seen and examined and marked in the pre-op area.? The patient signed the consent form. PROCEDURE IN DETAIL:The patient taken back to OR on the stretcher in supine position. Time out performed with anesthesia, surgeon and staff agreeing on patient's name site and surgery to be performed SCDs were placed on the lower extremities and inflated. A tourniquet was placed on {left} upper extremity and antibiotics given IV After anesthesia administered sedation I injected {5}cc 1%lido with epi and 0.5% marcaine plain at the operative site The?{left upper extremity}?was prepped and draped in sterile fashion the??{left upper extremity} was? exsanguinated with Esmarch bandage and tourniquet inflated to 250mmHg I made a transverse incision in the {left} volar distal wrist crease through skin and dermis with 15 blade scalpel.? Littler scissors spread down to antebrachial fascia. A small incision was made in antebrachial fascia allowing access to Carpal tunnel. I proceeded with sequential dilation staying in line with the ring finger and hugging the hook of the hamate.? I then used the synovial elevator to free any adhesions from the underside of the transverse carpal ligament. Next I was able to insert the Microaire endoscopic carpal tunnel device with direct visualization of the transverse fibers on the monitor and proceeded with complete segmental retrograde release of the ligament in its entirety.? I irrigated with normal saline and closed with 4-0 monocryl for dermis and subcuticular closure. A dressing of Dermabond, 4x4, sommer, and a volar splint was applied for patient safety, security, and comfort and secured with an qian bandage after the tourniquet was let down noting the hand was warm and well perfused. The patient was then awaken from anesthesia and transferred to the recovery room in stable condition.? Complications - none EBL- 0cc Disposition - home in stable condition Zeke Glass PA-C was essential for positioning, retraction, closure and dressing placement. [facility] Billing Surgery - Charge Forward: Surgery Billing ([id number] for zeke)
[2025-01-22 06:57] LABS: BEDSIDEPREGUCG Negative (Negative)
[2025-01-22] MEDS: ACETAMINOPHEN 500 MG TABLET 1000 MG PO (07:00)
--- NOTE | 2025-01-22 07:07 | WPDANESEPPF ---
Anes - Initial Pre Proc Eval Procedure: Operation Date: 01/22/25 08:15 Proposed Procedures p Left Endoscopic Carpal Tunnel Release, Possible Open - Ronny Amezcua MD Date/Time: 01/22/25 07:07 Surgeon: Ronny Amezcua MD Pre Op Diagnosis: left carpal tunnel syndrome Patient Data Age: 39 Gender: F Height: 1.68 m Weight: 146.7 kg Last Vital Signs Temp 36.5 C 01/22/25 06:37 Pulse 84 01/22/25 06:37 Resp 16 01/22/25 06:37 BP 140/83 01/22/25 06:37 Pulse Ox 98 01/22/25 06:37 O2 Del Method Room Air 01/22/25 06:37 Allergies Allergy/AdvReac Type Severity Reaction Status Date / Time ceftriaxone (From Rocephin) AdvReac Severe Anaphylactic Verified 01/10/25 15:58 Shock Sulfa (Sulfonamide AdvReac Severe Rash Verified 01/10/25 15:58 Antibiotics) amoxicillin (From Augmentin) AdvReac Intermediate Rash Verified 01/10/25 15:58 cephalexin (From Keflex) AdvReac Intermediate Rash Verified 01/10/25 15:58 clavulanic acid (From AdvReac Intermediate Rash Verified 01/10/25 15:58 Augmentin) prednisone AdvReac Intermediate Nausea and Verified 01/10/25 15:58 Vomiting tramadol AdvReac Intermediate Rash Verified 01/10/25 15:58 famotidine (From Pepcid) AdvReac Diarrhea Verified 01/10/25 15:58 vilazodone (From Viibryd) AdvReac Nausea, Verified 01/10/25 15:58 insomnia pristiq AdvReac Severe Anxiety Uncoded 01/02/25 09:22 septra AdvReac Intermediate Rash Uncoded 01/02/25 09:22 Home Medications ?Medication ?Instructions ?Recorded ?Confirmed ?Type Blood Builder by [employer] (iron 2 cap BYMOUTH .QD #60 caps 10/31/24 01/10/25 Rx bisglycinate 26 mg), B12 (30 mcg), folate 408 mcg) vitamin-C (15 mg) alprazolam 0.25 mg tablet (Xanax) 0.25 mg PO BID #20 tabs 10/31/24 01/10/25 Rx bupropion HCl 150 mg 24 hr tablet, 150 mg PO DAILY #90 tabs 10/31/24 01/10/25 Rx extended release paroxetine HCl 20 mg tablet 20 mg PO DAILY #90 tabs 10/31/24 01/10/25 Rx Zepbound 2.5 mg/0.5 mL 2.5 mg (0.5 mL) subcut WEEKLY #2 mL 01/02/25 01/10/25 Rx subcutaneous pen injector (tirzepatide (weight loss)) Held on 01/10/25. Instructions: waiting on insurance to approve Laboratory Tests 01/22/25 06:55 POC Urine HCG, Qual Negative (Negative) Patient hx anesthesia problems: none Family hx anesthesia problems: none Results Review: All pre-operative results and documents have been reviewed as part of the pre-operative evaluation. [facility] Past Medical History Medical History Anxiety PCOS (polycystic ovarian syndrome) Vitamin B12 deficiency Vitamin D deficiency Pre-diabetes Skin neoplasm Pes anserine bursitis Patellofemoral pain syndrome of right knee Chondromalacia patellae, right knee LINO (obstructive sleep apnea) Surgical History Surgical History History of section 03/26/10, 06/28/2014 Family History Family History Other Family history of cardiovascular disease Family history of malignant neoplasm Social History Social History Social History: 10/30/24 Not confident with medical forms Smoking status: Never smoker Second hand tobacco smoke exposure: No Alcohol intake: current Substance use: never Substance use type: does not use Do You Feel Safe in your Home?: Yes Lack of Transportation: No Lack of Food: Never True Current Housing: I Have Housing Concerned About Future Housing: No Difficulty Paying Gas/Electric Bills: No Difficulty Paying for Meds: Decline to Answer Currently Unemployed: No Education: High School Diploma/GED Difficulty w/ Childcare or Family Care: No Living arrangements: with family Occupation/Education: occupation Gender identity (if verbalized by the patient): Female Anes - Eval Final PreProcedure Day of Procedure 01/22/25 07:07 Patient weight: morbidly obese Heart: regular rate and rhythm Lungs: clear to auscultation Airway: Mallampati scale class II Neurological: alert and oriented Last oral intake: >/= 8 hours ASA classification: III Emergent: no Anesthetic plan: proceed Anesthesia type and monitoring: general GIVS and standard monitoring Results Review: All pre-operative results and documents have been reviewed as part of the pre-operative evaluation. Informed Consent: The patient's anesthetic plan and its attendant risks and benefits were discussed with the patient/family/POA. Questions were solicited and answers provided to the satisfaction of the patient/family/POA.
[2025-01-22] MEDS: LACTATED RINGERS 1,000 ML 30 ML IV CONT (07:20)
[2025-01-22] MEDS: CLINDAMYCIN 900 MG/D5W 50 ML 900 MG/50 ML PIGGYBACK 50 MG IVPB (08:00)
[2025-01-22] MEDS: LIDO 1%/EPINEPHRINE 1:100,000 50 ML VIAL (08:04)
[2025-01-22] MEDS: BUPivacaine HCL 0.5% 10 ML AMP 5 ML INFILTRATE (08:05)
[2025-01-22 08:21] VITALS: BP 133/99; PULSE 82; RESP 18; O2SAT 99
[2025-01-22 08:45] VITALS: BP 127/66; PULSE 80; RESP 18; O2SAT 96
[2025-01-22 09:10] VITALS: BP 119/73; PULSE 73; RESP 18
== END 2025-01-22 09:20 | disposition home or self-care (01) ==
PROVIDERS: PCP Physician Assistant Medical; Visit Provider Plastic Surgery
PROC: 01N54ZZ Release Median Nerve, Percutaneous Endoscopic Approach (ICD-10-PCS; CPT 29848; principal; 2025-01-22 08:15)
DX: G56.02 Carpal tunnel syndrome, left upper limb (principal)
CPT/HCPCS: 29848; A9270; J2003; J2004; J2250; J2704; J3010; J7120

== ENCOUNTER 2025-02-19 01:02 | Day surgery (SDC) | payer OTHER, SELFPAY ==
--- NOTE | 2025-02-06 13:02 | SUR.PREOP ---
[facility] has started construction of its new state of the art ER which will open Spring 2026. With this, we anticipate parking may be a challenge for some our surgical patients and families. Parking spaces are limited but are available for all Surgical, obstetrics, and ER patients sharing this lot. If you arrive and find you are having a hard time finding a parking space, please note that we understand the challenges, please drive around the hospital and park near Hospital Entrance 1. When you enter this entrance, you can ask a volunteer to direct or take you back to the surgical waiting area to check in. We appreciate everyone?s understanding of these expected challenges while we build for your future. Report to the Outpatient Waiting Room, entrance under the green pavilion located off [address], at time _930AM__ on date _02/19/25__. Planned Procedure Time: _1130AM__.? Time changes happen often and if your time is changed the preop area will call you the afternoon before. - You and your visitor will be asked to self-screen and do not enter if you have any COVID symptoms. Please call surgeon if you need to reschedule. - A mask is optional within the hospital at this time. Patients may have clear liquids (water, carbonated beverages, clear teas, apple juice) until 3 hours prior to surgery with a maximum of 20 ounces. - No food from midnight until time of surgery and no smoking, or chewing tobacco (or any form of nicotine). No chewing gum, candy or mints. Take only the following medications with a SIP of water on the morning of surgery: _alprazolam, bupropion, paroxetine.___ DO NOT STOP ANY OF YOUR OTHER PRESCRIPTION MEDICATIONS PRIOR TO SURGERY EXCEPT THE FOLLOWING Hold all vitamins and supplements for 3 days per anesthesiologist. Medications to discontinue per physician _None__ Date to take last dose of vitamins __02/15/25___ Please no make-up, nail gibraltarian, hairspray, perfume, deodorant, or body powder the day of surgery.? No jewelry (including any body piercings) or valuables the day of surgery, leave them at home.? Please take a shower or bath the night before, or the morning of, surgery with an antibacterial soap.? Wear comfortable, loose fitting clothing.? - Jewelry must be removed prior to entering the operating room.? Rings and piercings that are not removed may be cut off. - The hospital will not accept responsibility for valuables.? - Please leave all valuables, including medications, at home the day of surgery. If you are going home after surgery, a licensed jeep driver must drive you home.? - NO public transportation without another adult if you receive anesthesia. - We recommend that an adult stay with you for 24 hours following discharge. - We also recommend that you do not drive, make important decision, drink alcoholic beverages, or take any drugs that were not prescribed by your health care provider for at least 24 hours after your discharge time. Follow any additional instructions given to you from your surgeon. Telephone instructions given to __Amber___and asked if any additional questions and then verbalized understanding. Patient advised to call surgeon office or pre surgery nurse liaison [phone] if any additional questions.
[2025-02-06 13:12] VITALS: BMI 51.7
--- NOTE | 2025-02-07 14:19 | SUR.PREOP ---
[facility] has started construction of its new state of the art ER which will open Spring 2026. With this, we anticipate parking may be a challenge for some our surgical patients and families. Parking spaces are limited but are available for all Surgical, obstetrics, and ER patients sharing this lot. If you arrive and find you are having a hard time finding a parking space, please note that we understand the challenges, please drive around the hospital and park near Hospital Entrance 1. When you enter this entrance, you can ask a volunteer to direct or take you back to the surgical waiting area to check in. We appreciate everyone?s understanding of these expected challenges while we build for your future. Report to the Outpatient Waiting Room, entrance under the green pavilion located off [address], at time _930AM__ on date _02/19/25__. Planned Procedure Time: _1130AM__.? Time changes happen often and if your time is changed the preop area will call you the afternoon before. - You and your visitor will be asked to self-screen and do not enter if you have any COVID symptoms. Please call surgeon if you need to reschedule. - A mask is optional within the hospital at this time. Patients may have no food/fluid after midnight.. Take only the following medications with a SIP of water on the morning of surgery: _alprazolam, bupropion, paroxetine.___ DO NOT STOP ANY OF YOUR OTHER PRESCRIPTION MEDICATIONS PRIOR TO SURGERY EXCEPT THE FOLLOWING Hold all vitamins and supplements for 3 days per anesthesiologist. Medications to discontinue per physician _None__ Date to take last dose of vitamins __02/15/25___ Please no make-up, nail wolof, hairspray, perfume, deodorant, or body powder the day of surgery.? No jewelry (including any body piercings) or valuables the day of surgery, leave them at home.? Please take a shower or bath the night before, or the morning of, surgery with an antibacterial soap.? Wear comfortable, loose fitting clothing.? - Jewelry must be removed prior to entering the operating room.? Rings and piercings that are not removed may be cut off. - The hospital will not accept responsibility for valuables.? - Please leave all valuables, including medications, at home the day of surgery. If you are going home after surgery, a licensed freight delivery driver must drive you home.? - NO public transportation without another adult if you receive anesthesia. - We recommend that an adult stay with you for 24 hours following discharge. - We also recommend that you do not drive, make important decision, drink alcoholic beverages, or take any drugs that were not prescribed by your health care provider for at least 24 hours after your discharge time. Follow any additional instructions given to you from your surgeon. Telephone instructions given to __Amber___and asked if any additional questions and then verbalized understanding. Patient advised to call surgeon office or pre surgery nurse liaison [phone] if any additional questions.
--- OUTSIDE RECORDS SUMMARY | 2025-02-19 05:27 | XMS_ITS | Data Portability ---
Author Organization [facility], [id number] Address [address] [place] [address] Assessment No assessment recorded. Plan of Treatment Reminders Order Date Submit Date Provider Last Modified By Organization Details Last Modified Time Details Appointments ANNUAL- EST 15 2025 12:00P M YUN MALLORY WHNP Not available Not available Not available Lab HPV DNA, high-risk - Reflex to genotypin g if HPV Detected 2024 025 [facility] ([facility]), [facility] [address], [place], [address], 10/16/2024 17:46:42 pap, LB 2024 025 [facility] ([facility]), [address] [place] [address] [address], [place], [address], 10/16/2024 17:46:42 Referral None recorded. Procedures None recorded. Surgeries None recorded. Imaging None recorded. Medication Orders None recorded. Patient TargetsNo targets recorded. Patient Instructions Encounter Date Encounter Id Patient Instructions Last Modified By Organization Details Last Modified Time 10/14/2024 [id number] - Await Pap smea r and HPV [...] beth ts the lab in the scree aclvin of ThinP rep Pap Test slide s. [...] and labor atory findi ngs. See https ://Kluster/s ites/ defau lt/fi les/2 018-0 3/AW- 36275 _002_ 01.pd f for chaim fisherr nicki harry. Test perfo rmed by [facility], [facility] d/b/a Jose sorensen, [address], [place] [address] , Kayla Ramos ra, DO, Labor atory [facility], [facility]# [id number] HPV High Risk *HPV NOT DETEC NADIA [...] and labor atory findi ngs. See https ://Kluster/s ites/ defau lt/fi les/2 018-0 3/AW- 57795 _002_ 01.pd f for chaim er infor nicki n. [facility] d[facility]b/a [facility], [address], [place] [address] , Kayla Ramos ra, DO, [facility], CLIA# [id number] End of Repor t Techn ical servi lynette provi ded by [facility], d/b/a [facility], [address] [place] [address] Lanny hsu MD, [facility]. Case revie wed and diagn osis rende red at [facility], d/b/a [facility], [address] [place] [address] Lanny hsu MD, [facility]. CONFI DENTI AL Not Available [facility] ([facility]) [address] [place] [address], [place], [address], 10/16/2024 17:46:41 10/15/19 25 10/15/2024 HPV HIGH RISK SCREE N (TMA) HPV high risk NOT DETECT ED normal Not Available [facility] ([facility]) [address] [place] [address], [place], [address], 10/16/2024 17:46:42 Result Notes None recorded. Problems Name Problem SNOMED Code Status Onset Date Resolution Date Notes Provider Name and Address Organization Details Recorded Time Gastroes ophageal reflux disease 032260365 Active Acid Reflux/G ERD, Problem Code: 530.81; Problem Code Type: ICD-9; Not Available [facility] 12:18:27 Polycyst ic ovaries Active PCOS, Problem Code: 256.4; Problem Code Type: ICD-9; Not Available [facility] 12:18:27 Morbid obesity 444594652 Active 2016 Morbid obesity with BMI of 45.0-49. 9, adult, Problem Code: 278.01; Problem Code Type: ICD-9; Not Available On license of [facility] 12:18:27 Candidia sis of skin and nails Active 2017 Candidia sis of skin, Problem Code: 112.3; Problem Code Type: ICD-9; Not Available On license of [facility] 12:18:26 COVID-19 260474014 Completed 202410/14/2024 [facility] 07:58:15 History of pneumoni a 156571559 Active 2024 Adriana peacock [facility] 11:31:16 Problem Notes None recorded. Procedures Surgical History Date Name Laterality Status Provider Name and Address Organization Details Recorded Time 10/15/19 25 Date of Last Pap Smear completed Lucy Carroll [facility] 10/21/2024 13:19:42 09/18/19 24 Date of Last Mammogram completed Adriana Wren [facility] 10/14/2024 07:58:52 06/09/19 18 introduction of Mirena coil completed Not Available On license of [facility] 08/01/2024 12:07:21 section completed Not Available [facility] 08/01/2024 12:07:20 Imaging Results None recorded. Procedure Notes None recorded. Medical Equipment None Reported. Allergies Allergen ID Allergen Name Allergen Category Reaction Reaction Severity Criticality Documentation Date Start Date Code Code System Note Provider Name and Address Organization Details Recorded Time 122149 sulfur medicatio n Not available Not available Not available 08/01/2024 85292 RxNorm Not Available On license of [facility] 12:12:44 998124 Product containin g penicilli n (product) medicatio n rash Not available Not available 08/01/2024 43396 8001 SNOMED Aller gyCod e: '476' ; Aller gyNam e: 'PENI CILLI NS'; Aller gyCon ceptT ype: 'FDBA LLERG P'; Not Available On license of [facility] 12:12:44 353923 Substance with sulfonami de structure and antibacte rial mechanism of action (substanc e) medicatio n rash Not available Not available 08/01/2024 56196 8003 SNOMED Aller gyCod e: '491' ; Aller gyNam e: 'SULF A (SULF ONAMI DE ANTIB IOTIC S)'; Aller gyCon ceptT ype: 'FDBA LLERG P'; Not Available On license of [facility] 12:12:45 Medications Name Sig Start Date Stop [...] Updated DateTime 10/14/2024 167.64 cm 52.9 kg/m2 688160.58 g 118/68 mm[Hg] Adriana Wren [facility] 10/14/2024 11:29:29 Social History Question Answer Notes LastModified by [employer] Details LastModified Time Tobacco Smoking Status Never [...] Functional Status Question Answer Note LastModified by [employer] Details LastModified Time Do you use any [...] Response GI- Reflux/Ulcers Y Cancer- Genetic screening ID-Other Y Dermatology-Other Y Weight Management/Obesity Y Gynecological History Statement/Question [...] and Address Organization Details Recorded Time Novel [id number] 0 completed Not Available [facility] 08/01/2024 11:58:05 MMR 2 completed Adriana Vo[place]er null, [place] [facility] 10/14/2024 07:57:31 MMR 8 completed Adri[place] [facility] 10/14/2024 07:57:31 Tdap 6 completed Adriana [place] [facility] 10/14/2024 07:57:31 DTP 7 completed Adriana [place] [facility] 10/14/2024 07:57:31 DTP 0 completed Adriana [place] [facility] 10/14/2024 07:57:31 DTP 7 completed Adriana [place] [facility] 10/14/2024 07:57:31 DTP 2 completed Adri[place] [facility] 10/14/2024 07:57:31 DTP 7 completed Adriana Vod[place]ikaer [place] [facility] 10/14/2024 07:57:31 OPV, trivalent 7 completed Adriana [place] [facility] 10/14/2024 07:57:31 OPV, trivalent 0 completed Adri[place] [facility] 10/14/2024 07:57:31 OPV, trivalent 7 completed Adri[place] [facility] 10/14/2024 07:57:31 OPV, trivalent 2 completed Adri[place] [facility] 10/14/2024 07:57:31 OPV, trivalent 7 completed Adri[place] [facility] 10/14/2024 07:57:31 Influenza, split virus, trivalent, preservative 5 completed Adri[place] [facility] 10/14/2024 07:57:31 Td (adult), 2 Lf tetanus toxoid, preservative free, adsorbed 3 completed Adri[place] [facility] 10/14/2024 07:57:31 Hep B, adolescent or pediatric 7 completed Adri[place] [facility] 10/14/2024 07:57:31 Hep B, adolescent or pediatric 7 completed Adri[place] [facility] 10/14/2024 07:57:31 Hep B, adolescent or pediatric 7 completed [place] [facility] 10/14/2024 07:57:31 DTaP 6 completed Adri[place] [facility] 10/14/2024 07:57:31 Past Encounters Encounter ID Performer Location Encounter Start Date Encounter Closed Date Diagnosis/Indication Diagnosis SNOMED-CT Code Diagnosis ICD10 Code Diagnosis IMO Codes Diagnosis Note [id number] JANNIE KELLEY MD [id number] [facility] [address] [facility] [address] 10/14/2024 11:02:17 10/14/2024 11:51:20 Screening for malignant neoplasm of cervix 295355331 Z12.4 The patient underwent a Pap smear as part of her cervical cancer screening during the annual wellness visit. Results will be communicat ed through the patient portal once available. Human joon lloma virus screening 596997703 Z11.51 HPV screening was conducted alongside the Pap smear to ensure comprehens neda cervical health assessment . Female gen sabiha finding 457254950 Z01.419 48235 Health Concerns Section Related Observation LastModified by Organization Detai ls LastModified Time None Recorded Concern Status LastModified by Organization Details LastModified Time None Recorded Advance Directives Directive N: Payers Insurance Date Sequence Insurance Name Policy Number Policy James Covered Member ID James Member ID Guarantor Name 09/18/2024 1 [facility] - [employer] [facility] [id number] Ricardo Sabillon [id number] Summer Sabillon Notes Date Note Type [...] by her primary care provider. YUN MALLORY [facility] [address], [place], [address], [facility] 10/14/2024 14:00:34 OBGyn Episode Ob Episode Information Episode Created Date Number of Fetuses Patient Bloodtype Patient rh Status Prepregnancy Weight lbs Domestic Partner Domestic Partner Phone Father Name Habilitation Training Specialist Status 08/16/19 25 1 CLOSED Fetus Data First Name Last Name Admitted to NICU Weight (g) Sex Living Outcome Pediatric Complications Fetus ID Race Codes Race Delivery Type M [id number] z_[place] Calculation Initial Bakari [...] Domestic Partner Domestic Partner Phone Father Name Habilitation Training Specialist Status 08/16/19 25 1 CLOSED Fetus Data First Name Last Name Admitted to NICU Weight (g) Sex Living Outcome Pediatric Complications Fetus ID Race Codes Race Delivery Type F [id number] z_[place] Bakari Calculation Initial Bakari [...]
--- NOTE | 2025-02-19 06:28 | P.OP_ITS ---
Procedure Note - Detailed Date of Procedure 02/19/25 Pre-op Diagnosis rt carpal tunnel syndrome Post-op Diagnosis Same Procedure Performed right ectr Surgeon Rnony Amezcua MD Drug Discovery Informatics Specialist Zeke Marie PA-C Anesthesia MAC Description of Procedure INFORMED CONSENT: The patient was seen and examined and marked in the pre-op area.? The patient signed the consent form. PROCEDURE IN DETAIL:The patient taken back to OR on the stretcher in supine position. Time out performed with anesthesia, surgeon and staff agreeing on patient's name site and surgery to be performed SCDs were placed on the lower extremities and inflated. A tourniquet was placed on {right} upper extremity and antibiotics given IV After anesthesia administered sedation I injected {5}cc 1%lido with epi and 0.5% marcaine plain at the operative site The?{right upper extremity}?was prepped and draped in sterile fashion the??{right upper extremity} was? exsanguinated with Esmarch bandage and tourniquet inflated to 250mmHg I made a transverse incision in the {right} volar distal wrist crease through skin and dermis with 15 blade scalpel.? Littler scissors spread down to antebrachial fascia. A small incision was made in antebrachial fascia allowing access to Carpal tunnel. I proceeded with sequential dilation staying in line with the ring finger and hugging the hook of the hamate.? I then used the synovial elevator to free any adhesions from the underside of the transverse carpal ligament. Next I was able to insert the Microaire endoscopic carpal tunnel device with direct visualization of the transverse fibers on the monitor and proceeded with complete segmental retrograde release of the ligament in its entirety.? I irrigated with normal saline and closed with 4-0 monocryl for dermis and subcuticular closure. A dressing of Dermabond, 4x4, sommer, and a volar splint was applied for patient safety, security, and comfort and secured with an qian bandage after the tourniquet was let down noting the hand was warm and well perfused. The patient was then awaken from anesthesia and transferred to the recovery room in stable condition.? Complications - none EBL- 0cc Disposition - home in stable condition Zeke Marie PA-C was essential for positioning, retraction, closure and dressing placement. [facility] Billing Surgery - Charge Forward: Surgery Billing ([id number] for zeke)
--- NOTE | 2025-02-19 06:28 | WPDHPUPDATE1 ---
History and Physical Update Update Date/Time: 02/19/25 06:28 Patient seen and examined in pre-operative holding area. No interval change in medical history or symptoms. Patient recalls previous discussion of benefits and alternatives to procedure. Continues to desire to proceed with right endoscopic possible open carpal tunnel release . Reviewed procedure, post-op expectations and risks including but not limited to bleeding, infection, injury to tendon/nerve/vessel, decreased hand function, stiffness, RSD, no change or worsening of symptoms. I discussed the possible use of assistants and their participation in the case. Patient stated understanding and signed the consent form wishing to proceed.
[2025-02-19 10:15] VITALS: BP 147/79; PULSE 80; RESP 16; TEMP 36.6; O2SAT 98
[2025-02-19] MEDS: ACETAMINOPHEN 500 MG TABLET 1000 MG PO (10:29)
[2025-02-19] MEDS: LACTATED RINGERS 1,000 ML 30 ML IV CONT ×2 (10:30→12:46)
--- NOTE | 2025-02-19 11:36 | WPDANESEPPF ---
Anes - Initial Pre Proc Eval Procedure: Operation Date: 02/19/25 11:30 Proposed Procedures p Right Endoscopic Carpal Tunnel Release, Possible Open - Ronny Amezcua MD Date/Time: 02/19/25 11:36 Surgeon: Ronny Amezcua MD Pre Op Diagnosis: rt carpal tunnel syndrome Patient Data Age: 40 Gender: F Height: 1.68 m Weight: 145 kg Last Vital Signs Temp 97.8 F 02/19/25 10:15 Pulse 80 02/19/25 10:15 Resp 16 02/19/25 10:15 BP 147/79 H 02/19/25 10:15 Pulse Ox 98 02/19/25 10:15 O2 Del Method Room Air 02/19/25 10:15 Allergies Allergy/AdvReac Type Severity Reaction Status Date / Time ceftriaxone (From Rocephin) Allergy Severe Anaphylactic Verified 02/19/25 10:29 Shock Sulfa (Sulfonamide Allergy Severe Rash Verified 02/19/25 10:29 Antibiotics) amoxicillin (From Augmentin) Allergy Intermediate Rash Verified 02/19/25 10:29 cephalexin (From Keflex) Allergy Intermediate Rash Verified 02/19/25 10:29 clavulanic acid (From Allergy Intermediate Rash Verified 02/19/25 10:29 Augmentin) sulfamethoxazole (From Allergy Intermediate Rash Verified 02/19/25 10:29 Septra) tramadol Allergy Intermediate Rash Verified 02/19/25 10:29 trimethoprim (From Septra) Allergy Intermediate Rash Verified 02/19/25 10:29 desvenlafaxine (From Pristiq) AdvReac Severe Anxiety Verified 02/19/25 10:29 prednisone AdvReac Intermediate Nausea and Verified 02/19/25 10:29 Vomiting famotidine (From Pepcid) AdvReac Diarrhea Verified 02/19/25 10:29 vilazodone (From Viibryd) AdvReac Nausea, Verified 02/19/25 10:29 insomnia Home Medications ?Medication ?Instructions ?Recorded ?Confirmed ?Type bupropion HCl 150 mg 24 hr tablet, 150 mg PO DAILY #90 tabs 10/31/24 02/06/25 Rx extended release paroxetine HCl 20 mg tablet 20 mg PO DAILY #90 tabs 10/31/24 02/06/25 Rx Zepbound 2.5 mg/0.5 mL 2.5 mg (0.5 mL) subcut WEEKLY #2 mL 01/02/25 02/06/25 Rx subcutaneous pen injector (tirzepatide (weight loss)) Blood Builder by [employer] (iron 1 cap BYMOUTH .QD 02/06/25 02/06/25 History bisglycinate 26 mg), B12 (30 mcg), folate 408 mcg) vitamin-C (15 mg) alprazolam 0.25 mg tablet (Xanax) 0.25 mg PO BID #20 tabs 02/06/25 02/06/25 Rx cholecalciferol (vitamin D3) 25 1,000 unit PO DAILY 02/06/25 02/06/25 History mcg (1,000 unit) tablet (Vitamin D3) magnesium 200 mg tablet 200 mg PO DAILY 02/06/25 02/06/25 History vitamin B12 1,000 mcg-folic acid ibeth sublingual DAILY 02/06/25 History 400 mcg sublingual lozenge Patient hx anesthesia problems: none Family hx anesthesia problems: none Results Review: All pre-operative results and documents have been reviewed as part of the pre-operative evaluation. [facility] Past Medical History Medical History Anxiety PCOS (polycystic ovarian syndrome) Vitamin B12 deficiency Vitamin D deficiency Pre-diabetes Skin neoplasm Pes anserine bursitis Patellofemoral pain syndrome of right knee Chondromalacia patellae, right knee LINO (obstructive sleep apnea) Surgical History Surgical History History of section 03/26/10, 06/28/2014 Family History Family History Other Family history of cardiovascular disease Family history of malignant neoplasm Social History Social History Social History: 10/30/24 Not confident with medical forms Caffeine-soda Smoking status: Never smoker Second hand tobacco smoke exposure: No Alcohol intake: current Substance use: never Substance use type: does not use Do You Feel Safe in your Home?: Yes Lack of Transportation: No Lack of Food: Never True Current Housing: I Have Housing Concerned About Future Housing: No Difficulty Paying Gas/Electric Bills: No Difficulty Paying for Meds: Decline to Answer Currently Unemployed: No Education: High School Diploma/GED Difficulty w/ Childcare or Family Care: No Living arrangements: alone Occupation/Education: occupation Gender identity (if verbalized by the patient): Female Spiritual care concerns: No Anes - Eval Final PreProcedure Day of Procedure 02/19/25 11:36 Patient weight: morbidly obese Lungs: normal air movement Airway: Mallampati scale class II Neurological: alert and oriented Last oral intake: >/= 8 hours ASA classification: III Emergent: no Anesthetic plan: proceed Anesthesia type and monitoring: general GIVS and standard monitoring Results Review: All pre-operative results and documents have been reviewed as part of the pre-operative evaluation. BMI 51, LINO on CPAP. Informed Consent: The patient's anesthetic plan and its attendant risks and benefits were discussed with the patient/family/POA. Questions were solicited and answers provided to the satisfaction of the patient/family/POA.
[2025-02-19] MEDS: LIDO 1%/EPINEPHRINE 1:100,000 50 ML VIAL 10 ML INFILTRATE (13:03)
[2025-02-19] MEDS: CLINDAMYCIN 900 MG/D5W 50 ML 900 MG/50 ML PIGGYBACK 50 MG IVPB (13:03)
[2025-02-19] MEDS: BUPivacaine HCL 0.5% 10 ML AMP INFILTRATE (13:06)
[2025-02-19 13:20] VITALS: BP 143/65; PULSE 55; O2SAT 100
[2025-02-19 13:50] VITALS: BP 129/56; PULSE 54
[2025-02-19 14:20] VITALS: BP 126/76; PULSE 64
== END 2025-02-19 14:20 | disposition home or self-care (01) ==
PROVIDERS: PCP Physician Assistant Medical; Visit Provider Plastic Surgery
PROC: 01N54ZZ Release Median Nerve, Percutaneous Endoscopic Approach (ICD-10-PCS; CPT 29848; principal; 2025-02-19 11:30)
DX: G56.01 Carpal tunnel syndrome, right upper limb (principal); F41.9 Anxiety disorder, unspecified; E28.2 Polycystic ovarian syndrome; E53.8 Deficiency of other specified B group vitamins; E55.9 Vitamin D deficiency, unspecified; R73.03 Prediabetes; G47.33 Obstructive sleep apnea (adult) (pediatric); E66.01 Morbid (severe) obesity due to excess calories; Z68.43 Body mass index [BMI] 50.0-59.9, adult; Z79.85 Long-term (current) use of injectable non-insulin antidiabetic drugs; Z99.89 Dependence on other enabling machines and devices; Z98.890 Other specified postprocedural states; Z80.9 Family history of malignant neoplasm, unspecified; Z82.49 Family history of ischemic heart disease and other diseases of the circulatory system
CPT/HCPCS: 29848; A9270; J2003; J2004; J2250; J2405; J2704; J3010; J7120